=== PATIENT | female | born 2000 | race Caucasian/White ===

== ENCOUNTER 2022-08-18 08:43 | Inpatient (IN) | payer OTHER ==
[2022-08-19] MEDS ORDERED: Promethazine HCl 25 MG/ML VIAL IM PRN ×2 (06:29→14:16)
[2022-08-19] MEDS ORDERED: Carboprost 250 MCG/ML AMP IM PRN (06:29)
[2022-08-19] MEDS ORDERED: Butorphanol Tartrate 1 MG/ML VIAL SLOW IVP PRN (06:29)
[2022-08-19] MEDS ORDERED: Ondansetron PF 4 MG/2 ML Vial IVP PRN ×3 (06:29→17:29)
[2022-08-19] MEDS ORDERED: Diphenoxylate HCl/Atropine Tablet PO PRN ×2 (06:29)
[2022-08-19] MEDS ORDERED: hydrALAZINE 20 MG/ML VIAL SLOW IVP PRN ×2 (06:29→17:29)
[2022-08-19] MEDS ORDERED: Acetaminophen 500 MG TAB PO PRN (06:29)
[2022-08-19] MEDS ORDERED: Ibuprofen 800 MG TAB PO PRN (06:29)
[2022-08-19] MEDS ORDERED: HYDROcodone/Acetaminophen 5/325 mg Tablet PO PRN ×4 (06:29→17:29)
[2022-08-19] MEDS ORDERED: Docusate 100 MG CAP PO PRN (06:29)
[2022-08-19] MEDS ORDERED: Lidocaine 1% (PF) 30 ML VIAL SC PRN (06:29)
[2022-08-19] MEDS ORDERED: Zolpidem Tartrate 5 MG TAB PO PRN ×2 (06:29→17:29)
[2022-08-19] MEDS ORDERED: NS w/ Oxytocin 30 units 500 ML IV SCH ×4 (06:29→17:30)
[2022-08-19] MEDS ORDERED: Lactated Ringer's 1,000 ML IV SCH (06:29)
[2022-08-19] MEDS ORDERED: Penicillin G Potassium 5 MILL.UNITS in Sodium Chloride 0.9% 100 ML IVPB SCH (06:29)
[2022-08-19] MEDS ORDERED: Misoprostol 200 MCG TAB PR PRN (06:29)
[2022-08-19 06:32] VITALS: BMI 32.9
[2022-08-19] MEDS: Misoprostol 100 MCG TAB VAG SCH ×2 (07:38→11:03)
[2022-08-19 07:51] LABS: Hemoglobin 11.4 g/dL (12.0-15.5); Mean Corpuscular Hemoglobin 30.4 pg (27.0-33.0); Mean Corpuscular Volume 89.3 fl (81.6-98.3); Mean Platelet Volume 10.7 fl (7.4-10.4); Platelet Count 205 10x3/uL (150-450); RBC Distribution Width 13.1 % (11.5-14.5); Red Blood Cell (RBC) Count 3.75 10x6/uL (3.90-5.03); White Blood Cell (WBC) Count 6.2 10x3/uL (3.5-10.5)
[2022-08-19] MEDS ORDERED: Bupivacaine 0.25% HCL 30 ML VIAL ONE (08:00)
[2022-08-19 08:34] LABS: Syphilis Antibody Nonreactive (Nonreactive); Syphilis Antibody Index 0.04 S/CO (<1.00 Non-Reactive)
[2022-08-19 08:36] LABS: HBSAg Index 0.15 S/CO (0-0.99); HIV (1/2) Antibody/Antigen Non-Reactive (NonReactive); HIV 1/2 INDEX 0.15 S/CO (<1.00); Hep B Surf Ag - L&D Non-Reactive S/CO (NonReactive)
[2022-08-19] MEDS: Penicillin G 2.5 MILL.units 2.5 MILL.UNITS in Premix Bag 1 BAG IVPB SCH ×2 (11:06→15:12)
[2022-08-19] MEDS ORDERED: Fentanyl 2 mcg/Bup 0.1% Cadd 100 ML ONE (13:44)
[2022-08-19] MEDS ORDERED: Lactated Ringer's 500 ML IV PRN (14:16)
[2022-08-19] MEDS ORDERED: ePHEDrine Sulfate 50 MG/10 ML VIAL SLOW IVP PRN (14:16)
[2022-08-19] MEDS ORDERED: Moisturizing Cream (Eucerin) 113 GM JAR TOP PRN (14:16)
[2022-08-19] MEDS ORDERED: Acetaminophen 325 MG TAB PO PRN (14:16)
[2022-08-19] MEDS ORDERED: Naloxone HCl 0.4 mg/ml Vial IVP PRN ×2 (14:16)
[2022-08-19] MEDS ORDERED: diphenhydrAMINE 50 MG/ML VIAL IVP PRN (14:16)
[2022-08-19] MEDS ORDERED: Communication Order-Pharmacy FS SCH (14:30)
[2022-08-19] MEDS ORDERED: Fentanyl 2 mcg/Bupivacaine 0.1% Cassette 100 ML EPIDURAL SCH (14:30)
[2022-08-19] MEDS ORDERED: Bisacodyl 10 MG SUPP PR PRN (17:29)
[2022-08-19] MEDS ORDERED: Benzocaine-Menthol 82.5 ML CAN TOP PRN (17:29)
[2022-08-19] MEDS ORDERED: diphenhydrAMINE 25 MG CAP PO PRN (17:29)
[2022-08-19] MEDS ORDERED: Lanolin Ointment 7 GM TUBE TOP PRN (17:29)
[2022-08-19] MEDS ORDERED: Boostrix 0.5 ML (Tdap) VIAL (>/=7 yrs of age) IM ONE (17:29)
[2022-08-19] MEDS ORDERED: Preparation H Ointment 28 GM TUBE PR PRN (17:29)
[2022-08-19] MEDS ORDERED: Misoprostol 200 MCG TAB VAG PRN (17:29)
[2022-08-19] MEDS ORDERED: Milk Of Magnesia 30 ML UDCUP PO PRN (17:29)
[2022-08-19] MEDS: Ibuprofen 800 MG TAB PO SCH (21:43)
[2022-08-20] MEDS: Ibuprofen 800 MG TAB PO SCH ×3 (06:37→21:25)
[2022-08-20] MEDS: Docusate 100 MG CAP PO SCH ×4 (08:47→21:25)
[2022-08-20] MEDS: Ferrous Sulfate 325 MG TAB PO SCH ×2 (10:59→16:45)
[2022-08-20] MEDS: Prenatal Vitamin 1 TAB PO SCH (11:15)
[2022-08-21] MEDS: Ibuprofen 800 MG TAB PO SCH (05:26)
[2022-08-21] MEDS: Ferrous Sulfate 325 MG TAB PO SCH (07:17)
[2022-08-21] MEDS: Penicillin G 2.5 MILL.units 2.5 MILL.UNITS in Premix Bag 1 BAG IVPB SCH (08:21)
[2022-08-21] MEDS: Misoprostol 100 MCG TAB VAG SCH (08:22)
[2022-08-21] MEDS: Prenatal Vitamin 1 TAB PO SCH (08:24)
[2022-08-21] MEDS: Docusate 100 MG CAP PO SCH (08:24)
[2022-08-21 08:55] VITALS: BP 129/72; TEMP 98.4
== END 2022-08-21 13:15 | disposition home or self-care (01) | DRG 807 ==
LOC: CSHLD 08-19 06:21 → CSHPP 08-20 12:02
PROVIDERS: ADMIT Obstetrics & Gynecology; ATTEND Obstetrics & Gynecology
PROC: 10E0XZZ Delivery of Products of Conception, External Approach (ICD-10-PCS; principal; 2022-08-19)
PROC: 3E0P7VZ Introduction of Hormone into Female Reproductive, Via Natural or Artificial Opening (ICD-10-PCS; 2022-08-19)
PROC: 10907ZC Drainage of Amniotic Fluid, Therapeutic from Products of Conception, Via Natural or Artificial Opening (ICD-10-PCS; 2022-08-19)
PROC: 10H07YZ Insertion of Other Device into Products of Conception, Via Natural or Artificial Opening (ICD-10-PCS; 2022-08-19)
DX: O48.0 Post-term pregnancy (principal); Z37.0 Single live birth; Z3A.40 40 weeks gestation of pregnancy; O99.824 Streptococcus B carrier state complicating childbirth; O99.02 Anemia complicating childbirth; D64.9 Anemia, unspecified; O36.63X0 Maternal care for excessive fetal growth, third trimester, not applicable or unspecified; O99.344 Other mental disorders complicating childbirth; F41.9 Anxiety disorder, unspecified; F32.A Depression, unspecified; Z86.19 Personal history of other infectious and parasitic diseases; Z79.899 Other long term (current) drug therapy
CPT/HCPCS: 36415; 51702; 85027; 86780; 86850; 86900; 86901; 87340; 87389; J2540; J2590; J3490; S0020